=== PATIENT | male | born 1990 | race Caucasian/White ===

== ENCOUNTER 2017-11-05 17:43 | Emergency (ER) | payer BC ==
[2017-11-05] MEDS ORDERED: Acetaminophen/HYDROcodone 325-5 MG Tab PO ONE (18:47)
--- NOTE | 2017-11-05 20:13 | CT ---
Head CT Technique: Multiple axial sections through the brain were obtained. Intravenous contrast was not utilized. Comparison: No previous intracranial imaging. Findings: Ventricles along with basal cisterns and sulci over the convexities are within normal limits for the patient's age. No abnormal parenchymal densities are seen. No evidence of intracranial hemorrhage. No midline shift or mass effect is seen. Bone window settings were reviewed which shows the visualized sinuses to appear clear. No acute calvarial abnormality is seen. Impression: 1. Nothing acute is appreciated on noncontrast head CT exam. Diagnostic code #1
--- NOTE | 2017-11-05 20:37 | EDM.PDOC ---
ED HPI GENERAL MEDICAL PROBLEM - General Chief Complaint: Headache Stated Complaint: LEFT SIDE OF FACE SWOLLEN/ HEADACHE Time Seen by Provider: 11/05/17 18:20 Source of Information: Reports: Patient, RN Notes Reviewed - History of Present Illness INITIAL COMMENTS - FREE TEXT/NARRATIVE: 18-year-old male comes in with severe left headache, facial pain. this started about 2-3 days ago more severe yesterday and today. This morning there was some swelling of his left eye inferior periorbital area. The swelling now has gone down today but continues with quite severe left mid facial discomfort with does radiate to the left side of his head. No nausea vomiting fever or chills. He states he used to get migraines quite a few years ago but has not had a headache now for a long time. On exam he was noted to have extremely poor dentition, widespread that he states has been present for quite a long time but in his words the teeth "have not been giving him trouble". Patient does state that he is also been dizzy yesterday and today, at times off-balance and finally had to quit work due to severity of facial discomfort. Treatments [employer]: Reports: Other (see below) Other Treatments [employer]: motrin Left Headache Pain Score (Numeric/FACES): 7 - Related Data Allergies Allergy/AdvReac Type Severity Reaction Status Date / Time Penicillins Allergy Anaphylactic Verified 11/05/17 18:16 Shock Home Meds: Home Meds Acetaminophen/HYDROcodone [[place] 325-5 MG] 1 tab PO Q4H PRN #14 tablet 11/05/17 [Rx] Clindamycin HCl 300 mg PO TID #30 capsule 11/05/17 [Rx] Past Medical History Cardiovascular History: Reports: Heart Murmur Social & Family History - Tobacco Use Smoking Status *Q: Current Every Day Smoker Years of Tobacco use: 5 Packs/Tins Daily: 1 - Caffeine Use Caffeine Use: Reports: Coffee, Energy Drinks, Soda, Tea - Recreational Drug Use Recreational Drug Use: No ED ROS GENERAL - Review of Systems Review Of Systems: See Below Constitutional: Denies: Fever, Chills HEENT: Denies: Dental Pain (Patient denies dental pain but does complain of severe left facial pain), Sinus Problem, Throat Pain, Throat Swelling, Vision Change Cardiovascular: Denies: Chest Pain GI/Abdominal: Denies: Nausea, Vomiting Musculoskeletal: Denies: Neck Pain, Back Pain Skin: Denies: Rash Neurological: Reports: Headache. Denies: Numbness, Tingling - Physical Exam Exam: See Below General Appearance: Alert, Moderate Distress Eye Exam: Bilateral Eye: PERRL Ears: Normal External Exam, Normal Canal, Normal TMs Nose: Normal Inspection Throat/Mouth: Other (Extremely widespread poor dentition with many of his teeth cavitated to the point of broken off at the gumline. No major swelling left upper or lower grooming tissue no drainage, no visible abscess.) Head Exam: Facial Tenderness. No: Facial Swelling Neck: Supple (Left midface), Full Range of Motion. No: Lymphadenopathy (L), Lymphadenopathy (R) Respiratory/Chest: No Respiratory Distress, Lungs Clear, Normal Breath Sounds Cardiovascular: Regular Rate, Rhythm Neuro Exam (Abbreviated): Alert, Oriented, No Motor/Sensory Deficits, Other ( Finger to nose testing normal) Extremities: Normal Inspection Course - Vital Signs Last Recorded V/S: Last Vital Signs Temp 99.3 F 11/05/17 18:14 Pulse 77 11/05/17 18:14 Resp 20 11/05/17 18:14 BP 128/75 11/05/17 18:14 Pulse Ox 96 11/05/17 18:14 - Orders/Labs/Meds Meds: Medications Discontinued Medications Generic Name Dose Route Start Last Admin Trade Name Dat PRN Reason Stop Dose Admin Hydrocodone Bitart/Acetaminophen 1 tab 11/05/17 18:47 11/05/17 19:20 [place] 325-5 Mg PO 11/05/17 18:48 1 tab ONETIME ONE Administration - Re-Assessments/Exams Free Text/Narrative Re-Assessment/Exam: 11/06/17 09:[address] did come back normal. Discharge instr. as documented. Departure - Departure Time of Disposition: 20:34 Disposition: Home, Self-Care 01 Condition: Fair Clinical Impression: Facial pain, Pain, dental Headache Qualifiers: Headache type: unspecified Headache chronicity pattern: acute headache Intractability: not intractable Qualified Code(s): R51 - Headache - Discharge Information Prescriptions: Acetaminophen/HYDROcodone [[place] 325-5 MG] 1 tab PO Q4H PRN #14 tablet PRN Reason: Pain Clindamycin HCl 300 mg PO TID #30 capsule Instructions: Sinus Headache, [id number] Referrals: PCP,None [Primary Care Provider] - Forms: ED Department Discharge, ED Return to Work/School Form Additional Instructions: Continue mycin 300 mg 3 times daily for 10 days or until gone, he may continue Advil or ibuprofen 600 mg 3 times daily, Tylenol in between doses up to 3 times daily or hydrocodone every 4-6 hours if needed for severe pain. Don't take Tylenol and hydrocodone at the same time. Do not drive or work when taking hydrocodone. See dentist as soon as possible, early next week if possible, call tomorrow for appointment.
== END 2017-11-05 20:48 | disposition home or self-care (01) ==
LOC: JD.ED 17:43
DX: R51 Headache (principal); K02.9 Dental caries, unspecified; F17.210 Nicotine dependence, cigarettes, uncomplicated; Z88.0 Allergy status to penicillin
CPT/HCPCS: 70450; 99284; A9270